=== PATIENT | male | born 1980 | race Caucasian/White ===

== ENCOUNTER 2018-08-17 04:28 | Emergency (ER) | payer MEDICAID, SELFPAY ==
[~2018-08-17] VITALS: Ht 170.2 cm; Wt 52.0 kg
[2018-08-17] MEDS ORDERED: [UNRECOGNIZED DRUG - REMARK] (04:46)
[2018-08-17] MEDS ORDERED: SERT25TA PO (04:46)
[2018-08-17 05:25] LABS: BASOPHILS # (AUTO) 0.12 x10^3/uL (0-0.1); BASOPHILS % (AUTO) 2 % (0-1); EOSINOPHILS # (AUTO) 0.02 x10^3/uL (0-0.4); EOSINOPHILS % (AUTO) 0 % (1-7); LYMPHOCYTES # (AUTO) 0.37 x10^3/uL (1-3.4); LYMPHOCYTES % (AUTO) 7 % (22-44); MD NO; MEAN CORPUSCULAR HEMOGLOBIN 32.6 pg (27.5-34.5); MEAN CORPUSCULAR HGB CONC 34.4 g/dL (33.2-36.2); MEAN CORPUSCULAR VOLUME 94.8 fL (81-97); MEAN PLATELET VOLUME 6.7 fL (7.4-10.4); MONOCYTES # (AUTO) 0.32 x10^3/uL (0.2-0.8); MONOCYTES % (AUTO) 6 % (2-9); NEUTROPHILS # (AUTO) 4.79 x10^3/uL (1.8-6.8); NEUTROPHILS % (AUTO) 85 % (42-75); PLATELET COUNT 119 x10^3/uL (130-400); RED BLOOD COUNT 4.36 x10^6/uL (4.38-5.82); RED CELL DISTRIBUTION WIDTH 14.6 % (9.4-14.8)
[2018-08-17] MEDS ORDERED: LORazepam 1MG TABLET ONE (05:30)
[2018-08-17] MEDS ORDERED: LORazepam 1MG TABLET PO ONE (05:30)
[2018-08-17 05:37] LABS: ALANINE AMINOTRANSFERASE 121 U/L (12-78); ALBUMIN 3.5 g/dL (3.4-5.0); ANION GAP 13 mmol/L (5-15); CALCIUM 8.5 mg/dL (8.5-10.1); CHLORIDE 101 mmol/L (98-107); CREATININE 0.63 mg/dL (0.7-1.3)
[2018-08-17 05:40] LABS: ALKALINE PHOSPHATASE 201 U/L (45-117); BILIRUBIN,TOTAL 0.8 mg/dL (0.2-1.0); TOTAL PROTEIN 8.2 g/dL (6.4-8.2)
[2018-08-17] MEDS ORDERED: ONDANSETRON ODT 4 MG ONE (06:13)
[2018-08-17] MEDS ORDERED: ONDANSETRON ODT 4 MG PO ONE (06:30)
[2018-08-17 09:53] VITALS: BP 142/92
== END 2018-08-17 09:56 | disposition home or self-care (01) ==
LOC: ED 09:54
DX: F10.220 Alcohol dependence with intoxication, uncomplicated (principal); I10 Essential (primary) hypertension
CPT/HCPCS: 36415; 80053; 80307; 85025; 99284; Q0162